=== PATIENT | female | born 1990 | race Caucasian/White ===

== ENCOUNTER → 2017-08-06 | Outpatient (CLI) | payer BC ==
--- NOTE | 2017-08-06 16:18 | PCVCIMAG ---
APPROVED REPORT Study performed: 08/06/2017 14:23:35 EXAM: Comprehensive 2D, Doppler, and color-flow Echocardiogram Patient Location: Echo lab Room #: 2Status: routine BSA: 1.72 HR: 68 bpmBP: 124/80 mmHg Rhythm: NSR Risk Factors: Cardiac Risk Factors: HTN Indications Hypertension/HDD HX preeclampsia 2D Dimensions LVEF(%): 56.09 (>50%) IVSd: 7.75 (7-11mm)LVOT Diam: 19.66 (18-24mm) LVDd: 49.87 mm PWd: 7.39 (7-11mm)Ascending Ao: 20.78 (22-36mm) LVDs: 35.21 (25-40mm) Left Atrium: 26.94 (27-40mm) Aortic Root: 19.34 mm LV Single Plane 4CH: 56.77 % LV Single Plane 2CH: 54.12 %Ferreira's LVEF: 55.44 % Volumes Left Atrial Volume (Systole) Single Plane 4CH: 20.21 mLSingle Plane 2CH: 20.19 mL Biplane LA Volume: 21.00 mLLA ESV Index: 13.00 mL/m2 Aortic Valve AoV Peak Derrell.: 1.28 m/s AO Peak Gr.: 6.51 mmHg Mitral Valve E/A Ratio: 1.7 MV Decel. Time: 182.98 ms MV E Max Derrell.: 0.72 m/s MV A Derrell.: 0.43 m/s IVRT: 89.97 ms TDI E/Lateral E': 5.14E/Medial E': 7.20 Medial E' Derrell.: 0.10 m/s Lateral E' Derrell.: 0.14 m/s Pulmonary Valve PV Peak Derrell.: 0.84 m/sPV Peak Gr.: 2.79 mmHg Pulmonary Vein P Vein S: 0.40 m/sP Vein A: 0.21 m/s P Vein D: 0.62 m/sP Vein A Dur.: 76.1 msec P Vein S/D Ratio: 0.65 Tricuspid Valve TR Peak Derrell.: 1.42 m/s TR Peak Gr.: 8.09 mmHg TV Vmax: 0.79 m/sPA Pressure: 15.00 mmHg Left Ventricle The left ventricle is normal size. There is normal LV segmental wall motion. There is normal left ventricular wall thickness. Left ventricular systolic function is normal. The left ventricular ejection fraction is within the normal range. LVEF is 55-60%. The left ventricular diastolic function is normal. Right Ventricle The right ventricle is normal size. The right ventricular systolic function is normal. Atria The left atrium size is normal. The right atrium size is normal. Aortic Valve The aortic valve is normal in structure. No aortic regurgitation is present. There is no aortic valvular stenosis. Mitral Valve The mitral valve is normal in structure. There is no mitral valve regurgitation noted. No evidence of mitral valve stenosis. Tricuspid Valve The tricuspid valve is normal in structure. Trace tricuspid regurgitation. No pulmonary hypertension. Pulmonic Valve The pulmonary valve is normal in structure. There is no pulmonic valvular regurgitation. Great Vessels The aortic root is normal in size. The ascending aorta is normal in size. IVC is normal in size and collapses with >50% inspiration Pericardium There is no pericardial effusion. There is no pleural effusion. <Conclusion> 1. Normal echocardiogram with Doppler 2. No pericardial effusion
== END | disposition home or self-care (01) ==
LOC: PCVCIMAG 14:18
PROVIDERS: ATTEND Internal Medicine
DX: I10 Essential (primary) hypertension (principal); E78.5 Hyperlipidemia, unspecified
CPT/HCPCS: 93306